=== PATIENT | female | born 1935 | race Caucasian/White ===

== ENCOUNTER 2017-05-02 14:09 | Emergency (ER) | payer OTHER, MEDICARE ==
[~2017-05-02] VITALS: Ht 162.6 cm; Wt 56.0 kg
[~2017-05-02 14:09] MED LIST: ASPIR 8181 MG PO; ASPIR-LOW81 MG PO; ASPIRIN81 M2 PO; Aspirin Chewable PO; CALCIUM500 M4 PO; CARAFATE1 GM PO; CENTRUM SILVER1 EAC3 PO; CLINDAMYCIN HC300 MG PO; COZAAR25 MG PO; DAILY VITAMIN1 EAC8 PO; DOCUSATE SODIU100 MG PO; FERROUS SULFAT325 MG PO; FLORASTOR250 MG PO; FOLIC ACID1 MG PO; LISINOPRIL10 MG PO; LISINOPRIL5 MG PO; LOVENOX40 MG/0.4 SC; LOW DOSE ASPIRI81 M1 PO; METHOTREXATE2.5 MG PO; MIRALAX17 GM PO; MULTI-DAY VITA1 EACH PO; MULTIVITAMIN1 EAC1 PO; PANTOPRAZOLE SO40 MG PO; PREDNISONE10 MG PO; PREDNISONE20 MG PO; Protonix PO; TYLENOL EXTRA500 MG PO; Theragran PO; Tums,OsCal PO; VITAMIN D-32000 UNIT PO; VITAMIN D2000 UNIT PO; ZANTAC150 MG PO; ZESTRIL2.5 MG PO; Zestril,Prinivil PO; predniSONE PO
[2017-05-02 15:20] LABS: HEMATOCRIT 39.1 % (36.0-46.0); MCH 31.6 PG (29.0-34.0); MCHC 33.2 G/DL (30.0-36.0); MCV 95.1 FL (83-99); MEAN PLAT.VOLUME 9.5 uM^3 (9.5-12.4); PLATELET COUNT 234 K/uL (156-360); RBC DIS.WIDTH-CV 13.2 % (11.8-14.6); RBC DIS.WIDTH-SD 46.3 % (39-53); RED BLOOD COUNT 4.11 M/uL (3.80-5.20); WHITE BLOOD COUNT 6.4 K/uL (4.1-10.2)
[2017-05-02 15:29] LABS: CHLORIDE 98 mEq/L (99-109); SODIUM 133 mEq/L (136-147)
[2017-05-02 15:31] LABS: GLUCOSE 169 mg/dL (70-99)
[2017-05-02 15:33] LABS: ANION GAP 8 MEQ/L (2-14)
[2017-05-02 15:35] LABS: GFR ESTIMATE (CALCULATED) > 59 mL/min/
[2017-05-02 15:36] LABS: UREA NITROGEN (BUN) 13 mg/dL (9-23)
[2017-05-02 16:04] LABS: TROP-I INTERPRETATION NEGATIVE; TROPONIN-I < 0.01 ng/mL (0.0-0.30)
[2017-05-02 17:11] VITALS: BP 141/79
== END 2017-05-02 17:17 | disposition home or self-care (01) ==
LOC: EME 14:09
DX: R00.2 Palpitations (principal); R19.7 Diarrhea, unspecified; R53.1 Weakness; Y92.007 Garden or yard of unspecified non-institutional (private) residence as the place of occurrence of the external cause; Y93.H2 Activity, gardening and landscaping; K21.9 Gastro-esophageal reflux disease without esophagitis; I10 Essential (primary) hypertension; R73.03 Prediabetes; M35.3 Polymyalgia rheumatica; M81.0 Age-related osteoporosis without current pathological fracture; E21.3 Hyperparathyroidism, unspecified; Z96.651 Presence of right artificial knee joint; Z90.710 Acquired absence of both cervix and uterus; Z90.10 Acquired absence of unspecified breast and nipple; Z85.3 Personal history of malignant neoplasm of breast; Z85.828 Personal history of other malignant neoplasm of skin; Z98.890 Other specified postprocedural states; Z88.8 Allergy status to other drugs, medicaments and biological substances; Z88.1 Allergy status to other antibiotic agents; Z88.6 Allergy status to analgesic agent; Z88.0 Allergy status to penicillin; Z88.5 Allergy status to narcotic agent; Z91.09 Other allergy status, other than to drugs and biological substances
CPT/HCPCS: 71020; 80048; 84484; 85027; 93005; 99281; 99284

== ENCOUNTER 2018-02-14 15:35 | Emergency (ER) | payer OTHER, MEDICARE ==
[~2018-02-14] VITALS: Ht 162.6 cm; Wt 55.0 kg
[2018-02-14 16:07] LABS: HEMATOCRIT 40.4 % (36.0-46.0); HEMOGLOBIN 13.9 G/DL (11.9-15.5); MCH 32.5 PG (29.0-34.0); MCHC 34.4 G/DL (30.0-36.0); MCV 94.4 FL (83-99); PLATELET COUNT 224 K/uL (156-360); RBC DIS.WIDTH-SD 48.5 % (39-53); RED BLOOD COUNT 4.28 M/uL (3.80-5.20); WHITE BLOOD COUNT 9.4 K/uL (4.1-10.2)
[2018-02-14 16:17] LABS: ALBUMIN 4.3 g/dL (3.2-4.8); CHLORIDE 102 mEq/L (99-109); POTASSIUM 4.4 mEq/L (3.7-5.4); SODIUM 135 mEq/L (136-147)
[2018-02-14 16:19] LABS: GLUCOSE 104 mg/dL (70-99); TOTAL PROTEIN 7.5 g/dL (6.4-8.3)
[2018-02-14 16:21] LABS: TOTAL BILIRUBIN 0.6 mg/dL (0.0-1.0)
[2018-02-14 16:23] LABS: ALKALINE PHOSPHATASE 113 IU/L (3-129); CREATININE 0.8 mg/dL (0.6-1.3); GFR ESTIMATE (CALCULATED) > 59 mL/min/
[2018-02-14 16:24] LABS: UREA NITROGEN (BUN) 14 mg/dL (9-23)
[2018-02-14 16:25] LABS: AST (GOT) 22 IU/L (2-34)
[2018-02-14 16:26] LABS: ALT (GPT) 13 IU/L (3-49)
[2018-02-14 17:05] LABS: TROP-I INTERPRETATION NEGATIVE; TROPONIN-I < 0.01 ng/mL (0.0-0.30)
[2018-02-14 17:24] LABS: APPEARANCE CLEAR ((CLEAR)); BILIRUBIN NEGATIVE; BLOOD NEGATIVE; COLOR STRAW ((YELLOW)); GLUCOSE (STRIP) NEGATIVE; KETONES NEGATIVE; LEUKOCYTES NEGATIVE; NITRITE NEGATIVE; PROTEIN (STRIP) NEGATIVE; SPECIFIC GRAVITY 1.006 (1.000-1.030); UCUL ADDED? NO; UROBILINOGEN 0.2 MG/DL (0.2-1.0)
[2018-02-14 20:33] VITALS: BP 134/79
== END 2018-02-14 20:33 | disposition home or self-care (01) ==
LOC: EME 15:35
DX: K57.90 Diverticulosis of intestine, part unspecified, without perforation or abscess without bleeding (principal); R00.2 Palpitations; R07.9 Chest pain, unspecified; M16.12 Unilateral primary osteoarthritis, left hip; E11.9 Type 2 diabetes mellitus without complications; I10 Essential (primary) hypertension; Z85.3 Personal history of malignant neoplasm of breast; Z86.73 Personal history of transient ischemic attack (TIA), and cerebral infarction without residual deficits; K21.9 Gastro-esophageal reflux disease without esophagitis; Z96.651 Presence of right artificial knee joint; Z90.10 Acquired absence of unspecified breast and nipple; Z88.0 Allergy status to penicillin; Z88.8 Allergy status to other drugs, medicaments and biological substances; Z85.828 Personal history of other malignant neoplasm of skin; Z79.82 Long term (current) use of aspirin; M81.0 Age-related osteoporosis without current pathological fracture
CPT/HCPCS: 71046; 74176; 80053; 81003; 84484; 85027; 93005; 99281; 99284

== ENCOUNTER 2018-03-22 09:03 | Emergency (ER) | payer OTHER, MEDICARE ==
[~2018-03-22] VITALS: Ht 165.1 cm; Wt 54.7 kg
[2018-03-22 10:31] LABS: BASOPHIL (%) 0.4 % (0-1); EOSINOPHIL (%) 0.5 % (0-5); HEMATOCRIT 34.4 % (36.0-46.0); HEMOGLOBIN 11.7 G/DL (11.9-15.5); IMMATURE GRANULOCYTE (%) 0.3 % (0.0-0.7); LYMPHOCYTE (%) 8.4 % (15-42); LYMPHOCYTE COUNT 0.7 K/uL (1.0-2.8); MCH 32.1 PG (29.0-34.0); MCV 94.5 FL (83-99); MONOCYTE (%) 6.7 % (3-12); MONOCYTE COUNT 0.5 K/uL (0-0.8); NEUTROPHIL (%) 83.7 % (45-76); NEUTROPHIL COUNT 6.5 K/uL (1.8-6.4); PLATELET COUNT 190 K/uL (156-360); RBC DIS.WIDTH-CV 13.9 % (11.8-14.6); RBC DIS.WIDTH-SD 47.8 % (39-53); RED BLOOD COUNT 3.64 M/uL (3.80-5.20); WHITE BLOOD COUNT 7.8 K/uL (4.1-10.2)
[2018-03-22 10:39] LABS: CHLORIDE 102 mEq/L (99-109); POTASSIUM 4.4 mEq/L (3.7-5.4); SODIUM 133 mEq/L (136-147)
[2018-03-22 10:40] LABS: GLUCOSE 123 mg/dL (70-99)
[2018-03-22 10:44] LABS: CREATININE 0.9 mg/dL (0.6-1.3); GFR ESTIMATE (CALCULATED) > 59 mL/min/
[2018-03-22 10:45] LABS: UREA NITROGEN (BUN) 17 mg/dL (9-23)
[2018-03-22 14:00] VITALS: BP 161/62
== END 2018-03-22 14:10 | disposition home or self-care (01) ==
LOC: EME 09:03
PROVIDERS: Emergency Medicine
DX: S09.90XA Unspecified injury of head, initial encounter (principal); R42 Dizziness and giddiness; S80.11XA Contusion of right lower leg, initial encounter; M25.551 Pain in right hip; M25.511 Pain in right shoulder; W01.0XXA Fall on same level from slipping, tripping and stumbling without subsequent striking against object, initial encounter; K21.9 Gastro-esophageal reflux disease without esophagitis; I10 Essential (primary) hypertension; R73.03 Prediabetes; M35.3 Polymyalgia rheumatica; M81.0 Age-related osteoporosis without current pathological fracture; M48.00 Spinal stenosis, site unspecified; Z85.3 Personal history of malignant neoplasm of breast; Z85.828 Personal history of other malignant neoplasm of skin; Z96.651 Presence of right artificial knee joint; Z79.82 Long term (current) use of aspirin; Z88.0 Allergy status to penicillin; Z88.1 Allergy status to other antibiotic agents; Z88.5 Allergy status to narcotic agent; Z88.8 Allergy status to other drugs, medicaments and biological substances
CPT/HCPCS: 70450; 71045; 73030; 73502; 73552; 73564; 80048; 85025; 85610; 93005; 99281; 99285